=== PATIENT | female | born 1955 | race Caucasian/White ===

== ENCOUNTER → 2022-11-11 12:40 | Outpatient (BNVA) | payer MEDICARE, MEDICAID, SELFPAY | PROVIDERS: PCP Student in an Organized Health Care Education/Training Program; Visit Provider Nurse Practitioner Family | DX: G47.19 Other hypersomnia (principal); R06.83 Snoring | CPT/HCPCS: 99202 ==

== ENCOUNTER → 2022-11-18 13:43 | Outpatient (REF) | payer MEDICARE, MEDICAID, SELFPAY | LOC: HO.SL 13:43 | PROVIDERS: PCP Student in an Organized Health Care Education/Training Program; Visit Provider Nurse Practitioner Family | DX: G47.33 Obstructive sleep apnea (adult) (pediatric) (principal); G47.19 Other hypersomnia; R06.83 Snoring | CPT/HCPCS: 95806 ==

== ENCOUNTER 2023-03-05 08:23 | Outpatient (AMB) | payer MEDICARE, MEDICAID, SELFPAY ==
--- NOTE | 2023-03-05 08:29 | A.OFFVIS_ITS ---
Intake Vital Signs 03/05/23 08:32 Weight 149 lb 2 oz BP 118/72 Blood Pressure Location Lt brachial Position Sitting Pulse 57 Pulse Source Pulse Oximeter Pulse Oximetry (%) 97 Oxygen Delivery Method Room Air Intake Visit Reasons: 2 mnts f/u for sleep - Confirmed Intake Note: F/U sleep apnea Entertainment Director Required: No Allergies No Known Allergies Allergy (Verified 03/05/23 08:30) HPI HPI Comments History of Present Illness Details 68 y/o female patient presents with her friend for follow up of sleep study. The home sleep study result was significant for moderate degree of sleep apnea with increased severity in supine sleep. The AHI was 21/hr and 50/hr in supine with lowest O2 sat 66%. Pt started APAP [id number]. The compliance and therapy response (02/03/23-03/04/23) reviewed. The usage days 100% and the average usage hours 7 hrs. The median pressure is 7.3 and AHI 7.5/hr. The apnea index was central 5.7 and obstructive 0.9. Pt sleeps well with CPAP, but drooling sometimes. Pt's friend noticed that patient is much more awake during daytime. Pt also reports that her blood pressure also gets better. PFSH Surgical History (Updated 11/11/22 @ 13:08 by SURYA Chadwick) H/O breast biopsy H/O skin graft Hx of cataract surgery Family History (Updated 11/11/22 @ 13:09 by SURYA Chadwick) Mother Cancer Social History (Updated 03/05/23 @ 08:32 by Tasha Calix CMA) Alcohol intake: never Patient Tobacco Use Status: Never used Tobacco Review of Systems Const All systems reviewed & are unremarkable except as noted in HPI and below ENT Reports Normal hearing present Neuro Reports Normal hearing present Physical Exam Vital Signs: Last Vital Signs Pulse 57 03/05/23 08:32 BP 118/72 03/05/23 08:32 Pulse Ox 97 03/05/23 08:32 Oxygen Delivery Method Room Air 03/05/23 08:32 Const General: cooperative and comfortable Orientation/consciousness: patient oriented x3 Neck Neck: Yes full ROM and Yes supple Neuro General: patient oriented x3 Cranial nerves: Yes Bilaterally intact EOM present, Yes Normal facial strength present, Yes Midline tongue present, Yes Symmetric palate elevation present, Yes Normal hearing present, Yes Ability to bilaterally rotate head present and Yes Ability to bilaterally elevate shoulders present Cognition (Neuro): normal cognition Gait exam (Neuro): Normal gait present Motor exam (neuro): 5/5 motor strength present throughout, Pronator motor function not present and no tremor noted Psych Appearance: grossly normal Mental Status: mental status grossly normal Speech and movement: Normal speech and movement present Affect: normal affect Attitude: cooperative Assessment & Plan Assessment & Plan (1) MARK on CPAP: Comment: Moderate degree of sleep apnea with increased severity in supine sleep. AHI was 21/hr and 50/hr with lowest O2 sat 66%. Code(s): G47.33 - Obstructive sleep apnea (adult) (pediatric) Plan Change the CPAP pressure to 8cmH2O. Advised patient to try chin strap to prevent drooling. Stressed compliance, use CPAP nightly and more than 4 hours. Coding Level of Care Code Est Pt Level 3 (60118) Diagnoses MARK on CPAP G47.33
[2023-03-05 08:32] VITALS: BP 118/72; PULSE 57; O2SAT 97
== END 2023-03-05 08:58 | disposition home or self-care (01) ==
PROVIDERS: Visit Provider Nurse Practitioner Family
DX: G47.33 Obstructive sleep apnea (adult) (pediatric) (principal)
CPT/HCPCS: 99213

== ENCOUNTER → 2023-03-05 08:23 | Outpatient (BNVA) | payer MEDICARE, MEDICAID, SELFPAY | PROVIDERS: Visit Provider Nurse Practitioner Family | DX: G47.33 Obstructive sleep apnea (adult) (pediatric) (principal); Z99.89 Dependence on other enabling machines and devices | CPT/HCPCS: 99212 ==

== ENCOUNTER 2023-06-24 10:29 | Outpatient (AMB) | payer MEDICARE, MEDICAID, SELFPAY ==
[2023-06-24 10:30] VITALS: BP 132/70; PULSE 60; O2SAT 98; BMI 27.0
--- NOTE | 2023-06-24 10:30 | A.OFFVIS_ITS ---
Intake Vital Signs 06/24/23 10:30 Height 5 ft 3 in Weight 152 lb 8 oz BMI 27.0 BP 132/70 Blood Pressure Location Rt brachial Position Sitting Pulse 60 Pulse Source Pulse Oximeter Pulse Oximetry (%) 98 Oxygen Delivery Method Room Air Intake Visit Reasons: 4m f/u sleep - Confirmed Intake Note: Patient presents for 4 month follow up sleep. Allergies No Known Allergies Allergy (Verified 06/24/23 10:32) HPI HPI Comments History of Present Illness Details 68 y/o female patient presents with her friend for follow up of sleep study. The home sleep study result was significant for moderate degree of sleep apnea with increased severity in supine sleep. The AHI was 21/hr and 50/hr in supine with lowest O2 sat 66%. CPAP pressure was changed to 8 cmH2O. The compliance and therapy response (03/20/23-06/17/23) reviewed. The usage days 99% and the average usage hours 7 hrs. The residual AHI 5.8/hr. The apnea index was central 4.4 and obstructive 0.8. Pt reports that she sleeps more during daytime, she does not feel good. She feels not getting enough air with CPAP and can't sleep well. Pt tried APAP [id number] but it increased her AHI over 7 and pt also did not tole rate well. PFSH Surgical History H/O skin graft H/O breast biopsy Hx of cataract surgery Family History Mother Cancer Social History Alcohol intake: never Patient Tobacco Use Status: Never used Tobacco Review of Systems Const All systems reviewed & are unremarkable except as noted in HPI and below ENT Reports Normal hearing present Neuro Reports Normal hearing present Physical Exam Vital Signs: Last Vital Signs Pulse 60 06/24/23 10:30 BP 132/70 06/24/23 10:30 Pulse Ox 98 06/24/23 10:30 Oxygen Delivery Method Room Air 06/24/23 10:30 BMI result Body Mass Index 27.0 Const General: cooperative and comfortable Orientation/consciousness: patient oriented x3 Neck Neck: Yes full ROM and Yes supple Neuro General: patient oriented x3 Cranial nerves: Yes Bilaterally intact EOM present, Yes Normal facial strength present, Yes Midline tongue present, Yes Symmetric palate elevation present, Yes Normal hearing present, Yes Ability to bilaterally rotate head present and Yes Ability to bilaterally elevate shoulders present Cognition (Neuro): normal cognition Gait exam (Neuro): Normal gait present Motor exam (neuro): 5/5 motor strength present throughout, Pronator motor function not present and no tremor noted Psych Appearance: grossly normal Mental Status: mental status grossly normal Speech and movement: Normal speech and movement present Affect: normal affect Attitude: cooperative Assessment & Plan Assessment & Plan (1) MARK on CPAP: Comment: Moderate degree of sleep apnea with increased severity in supine sleep. AHI was 21/hr and 50/hr with lowest O2 sat 66%. Code(s): G47.33 - Obstructive sleep apnea (adult) (pediatric) (2) Excessive daytime sleepiness: Code(s): G47.19 - Other hypersomnia Plan Advised patient to undergo CPAP titration study to find out the optimal pressure to treat her MARK. Will f/u with patient after the titration study for appropriate treatment CPAP pressure. Continue to practice good sleep hygiene and increase daytime physical activities. Orders: Orders RT PSG in-lab sleep titration Today G47.19 - Other hypersomnia, G47.33 - Obstructive sleep apnea (adult) (pediatric) Coding Level of Care Code Est Pt Level 3 (71500) Diagnoses MARK on CPAP G47.33 Excessive daytime sleepiness G47.19
== END 2023-06-24 10:58 | disposition home or self-care (01) ==
PROVIDERS: PCP Student in an Organized Health Care Education/Training Program; Visit Provider Nurse Practitioner Family
DX: G47.33 Obstructive sleep apnea (adult) (pediatric) (principal); G47.19 Other hypersomnia
CPT/HCPCS: 99213

== ENCOUNTER → 2023-06-24 10:29 | Outpatient (BNVA) | payer MEDICARE, MEDICAID, SELFPAY | PROVIDERS: PCP Student in an Organized Health Care Education/Training Program; Visit Provider Nurse Practitioner Family | DX: G47.33 Obstructive sleep apnea (adult) (pediatric) (principal); G47.19 Other hypersomnia | CPT/HCPCS: 99212 ==

== ENCOUNTER → 2023-08-03 19:30 | Outpatient (REF) | payer MEDICARE, OTHER, SELFPAY | LOC: HO.SL 19:30 | PROVIDERS: PCP Internal Medicine; Visit Provider Nurse Practitioner Family | DX: G47.33 Obstructive sleep apnea (adult) (pediatric) (principal) | CPT/HCPCS: 95811 ==

== ENCOUNTER → 2023-08-03 23:13 | Outpatient (BNV) | payer MEDICARE, SELFPAY | PROVIDERS: PCP Internal Medicine; Visit Provider Psychiatry & Neurology Neurology | DX: G47.33 Obstructive sleep apnea (adult) (pediatric) (principal) | CPT/HCPCS: 95811 ==

== ENCOUNTER 2023-11-03 13:20 | Outpatient (AMB) | payer MEDICARE, MEDICAID, SELFPAY ==
--- NOTE | 2023-11-03 13:24 | MHC.OFFVIS ---
Vital Signs 11/03/23 13:26 Height 5 ft 3 in Weight 151 lb 6 oz BMI 26.8 BP 118/72 Blood Pressure Location Rt brachial Position Sitting Pulse 83 Pulse Source Pulse Oximeter Pulse Oximetry (%) 99 Intake Visit Reasons: Follow up Sleep - Confirmed Intake Note: Patient presents for follow up sleep. Patient has not been using her mask because I she sleeps with my mouth open. Allergies No Known Allergies Allergy (Verified 11/03/23 13:28) HPI Comments Details: 68 y/o female patient presents with her friend for follow up of sleep study. Pt underwent titration study, and on CPAP [id number], her breathing and oxygenation stabilized. However, CPAP compliance and therapy response (07/30/23-10/27/23) revealed that her AHI increased to 10.9/hr with CPAP at 14. The apnea index was central 8.4 and obstructive 1.3. Pt states that she sleep with her mouth open, tried chin strap, but it kept falling off. She stopped using CPAP about 2 weeks ago. The home sleep study result was significant for moderate degree of sleep apnea with increased severity in supine sleep. The AHI was 21/hr and 50/hr in supine with lowest O2 sat 66%. She tried CPAP at 8cmH2O at the beginning. The residual AHI 5.8/hr. The apnea index was central 4.4 and obstructive 0.8. Pt reported that she sleeps more during daytime, she does not feel good. She feels not getting enough air with CPAP and can't sleep well. Pt tried APAP [id number] but it increased her AHI over 7 and pt also did not tolerate well. PFSH Surgical History H/O skin graft H/O breast biopsy Hx of cataract surgery Family History Mother Cancer Social History Alcohol intake: never Patient Tobacco Use Status: Never used Tobacco Review of Systems Const All systems reviewed & are unremarkable except as noted in HPI and below ENT Reports Normal hearing present Neuro Reports Normal hearing present Physical Exam Vital Signs: Last Vital Signs Pulse 83 11/03/23 13:26 BP 118/72 04/23/24 13:26 Pulse Ox 99 11/03/23 13:26 BMI result Body Mass Index 26.8 Const General: cooperative and comfortable Orientation/consciousness: patient oriented x3 Neck Neck: Yes full ROM and Yes supple Neuro General: patient oriented x3 Cranial nerves: Yes Bilaterally intact EOM present, Yes Normal facial strength present, Yes Midline tongue present, Yes Symmetric palate elevation present, Yes Normal hearing present, Yes Ability to bilaterally rotate head present and Yes Ability to bilaterally elevate shoulders present Cognition (Neuro): normal cognition Gait exam (Neuro): Normal gait present Motor exam (neuro): 5/5 motor strength present throughout, Pronator motor function not present and no tremor noted Psych Appearance: grossly normal Mental Status: mental status grossly normal Speech and movement: Normal speech and movement present Affect: normal affect Attitude: cooperative Assessment & Plan Assessment & Plan (1) MARK on CPAP: Comment: Moderate degree of sleep apnea with increased severity in supine sleep. AHI was 21/hr and 50/hr with lowest O2 sat 66%. Code(s): G47.33 - Obstructive sleep apnea (adult) (pediatric) Category: Medical (2) Excessive daytime sleepiness: Code(s): G47.19 - Other hypersomnia Category: Medical Plan Advised patient to try full face mask or different chin strap. Changed CPAP pressure to [id number]. Will monitor. Continue to practice good sleep hygiene and increase daytime physical activities. Coding Level of Care Code Est Pt Level 3 (50722) Diagnoses MARK on CPAP G47.33 Excessive daytime sleepiness G47.19
[2023-11-03 13:26] VITALS: BP 118/72; PULSE 83; O2SAT 99; BMI 26.8
== END 2023-11-03 13:53 | disposition home or self-care (01) ==
PROVIDERS: PCP Student in an Organized Health Care Education/Training Program; Visit Provider Nurse Practitioner Family
DX: G47.33 Obstructive sleep apnea (adult) (pediatric) (principal); G47.19 Other hypersomnia
CPT/HCPCS: 99213

== ENCOUNTER → 2023-11-03 13:20 | Outpatient (BNVA) | payer MEDICARE, OTHER, SELFPAY | PROVIDERS: PCP Student in an Organized Health Care Education/Training Program; Visit Provider Nurse Practitioner Family | DX: G47.33 Obstructive sleep apnea (adult) (pediatric) (principal); G47.19 Other hypersomnia; Z99.89 Dependence on other enabling machines and devices | CPT/HCPCS: 99212 ==